=== PATIENT | female | born 1975 | race Caucasian/White ===

== ENCOUNTER 2019-03-18 05:34 | Emergency (ER) | payer MEDICARE, MEDICAID ==
[~2019-03-18] VITALS: Ht 139.7 cm; Wt 68.2 kg
[2019-03-18] MEDS ORDERED: SYNTHROID (05:39)
--- NOTE | 2019-03-18 06:00 | NUR ---
PT TO XRAY
--- NOTE | 2019-03-18 06:48 | NUR ---
report received from oskar napoles.
[2019-03-18 07:00] VITALS: BP 112/64
--- NOTE | 2019-03-18 07:00 | NUR ---
FIRST CONTACT WITH PT. TASK RN. Patient/Caregiver given discharge instructions and they have confirmed that they understand the instructions. Patient ambulatory with steady gait. PT LEFT WITH ALL PERSONAL BELONGINGS.
== END 2019-03-18 07:03 | disposition home or self-care (01) ==
LOC: ED 06:29
DX: J06.9 Acute upper respiratory infection, unspecified (principal)
CPT/HCPCS: 71046; 99283